=== PATIENT | male | born 1995 | race Two or more races ===

== ENCOUNTER 2017-08-14 02:10 | Emergency (ER) | payer SELFPAY ==
[~2017-08-14] VITALS: Ht 182.9 cm; Wt 86.2 kg
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
--- NOTE | 2017-08-14 02:15 | NUR ---
ER RAY AT BEDSIDE FOR EVAL
[2017-08-14] MEDS ORDERED: PANTOPRAZOLE 40 MG VIAL ONE (02:46)
[2017-08-14] MEDS ORDERED: ONDANSETRON HCL/PF 4 MG/2 ML VIAL ONE (02:46)
[2017-08-14] MEDS ORDERED: KETOROLAC TROMETHAMINE 15 MG/ML VIAL ONE (02:46)
--- NOTE | 2017-08-14 02:50 | NUR ---
BLOOD SENT TO LAB WITH ASSISTANT PROFESSOR OF NURSING. AWAITING URINE SAMPLE
[2017-08-14] MEDS: IV NS 0.9% 1,000 ML BAG IV ONE (02:53)
[2017-08-14] MEDS: KETOROLAC TROMETHAMINE INJ 30 MG/ML VIAL IV ONE (02:53)
[2017-08-14] MEDS: ONDANSETRON HCL/PF 4 MG/2 ML VIAL IVP ONE (02:54)
[2017-08-14] MEDS: PANTOPRAZOLE 40 MG VIAL IV ONE (02:54)
[2017-08-14 03:11] LABS: BASOPHILS # (AUTO) 0.1 /CMM (0.0-0.2); BASOPHILS % (AUTO) 0.6 % (0.0-2.0); EOSINOPHILS # (AUTO) 0.1 /CMM (0.0-0.7); EOSINOPHILS % (AUTO) 1.1 % (0.0-6.0); HEMATOCRIT 47 % (39-51); HEMOGLOBIN 16.2 g/dL (13.5-17.5); LYMPHOCYTES # (AUTO) 2.6 /CMM (0.8-4.8); LYMPHOCYTES % (AUTO) 30.1 % (20.0-44.0); MEAN CORPUSCULAR HEMOGLOBIN 31 PG (26.0-33.0); MEAN CORPUSCULAR HGB CONC 34 g/dl (31.0-36.0); MEAN CORPUSCULAR VOLUME 89 fL (80-96); MONOCYTES # (AUTO) 0.8 /CMM (0.1-1.30); MONOCYTES % (AUTO) 9.1 % (2.0-12.0); NEUTROPHILS % (AUTO) 59.1 % (43.0-81.0); PLATELET COUNT (AUTO) 242 /CMM (150-450); RDW COEFFICIENT OF VARIATION 13.9 (11.5-15.0); RED BLOOD CELL COUNT(AUTO) 5.33 MIL/uL (4.5-6.0); WHITE BLOOD COUNT (AUTO) 8.5 K/uL (4.3-11.0)
--- NOTE | 2017-08-14 03:22 | NUR ---
US TECH AT BEDSIDE
[2017-08-14 03:24] LABS: CALCIUM, SERUM 9.5 mg/dL (8.5-10.1); POTASSIUM 3.8 mmol/L (3.5-5.1)
[2017-08-14 03:37] LABS: ALBUMIN 4.5 g/dL (3.4-5.0); BILIRUBIN,DIRECT 0.1 mg/dL (0.0-0.2); BILIRUBIN,TOTAL 0.5 mg/dL (0.2-1.0); TOTAL PROTEIN, SERUM 8.5 g/dL (6.4-8.2)
[2017-08-14 04:10] VITALS: BP 161/108
== END 2017-08-14 04:10 | disposition home or self-care (01) ==
LOC: ER 02:11
DX: R10.13 Epigastric pain (principal); R10.11 Right upper quadrant pain
CPT/HCPCS: 36415; 76705-TC; 80048-TC; 80076-TC; 83690-TC; 85025-TC; A4606; C9113; J1885; J2405; J7030; Z7610